=== PATIENT | female | born 1995 | race Asian ===

== ENCOUNTER 2022-09-09 18:51 | Inpatient (IN) ==
[2022-09-09] MEDS ORDERED: OXYTOCIN 30 UNITS/500 ML BAG IV PRN (19:28)
[2022-09-09] MEDS ORDERED: LIDOCAINE 1% LOCAL 20 ML VIAL INFIL PRN (19:28)
[2022-09-09 20:05] LABS: Hematocrit (blood only) 36.8 % (37.0-47.0); Hemoglobin 12.1 g/dl (12.0-16.0); Mean Corpuscular Hgb Conc 32.9 g/dL (32.0-36.0); Mean Corpuscular Volume 70.1 fL (80.0-100.0); Mean Platelet Volume 11.8 fL (9.4-12.4); Platelet Count 186 K/uL (130-400); RDW Standard Deviation 34.8 fL (36.4-46.3); Red Blood Count 5.25 M/uL (4.20-5.40); White Blood Count 11.17 K/ul (4.8-10.8)
--- NOTE | 2022-09-09 21:22 | History & Physical Report ---
Date of Service September 09, 2022 Assessment & Plan (1) Fatty liver in mother during : Plan: Monica is a 27-year-old currently at 39 weeks 3days gestational age presents in early labor. 1. Fetus: Cat 1 2. Labor: Early. 3. GBS negative 4. Vitals wnl. (2) Gestational diabetes: (3) Supervision of normal first : (4) Normal labor: Admission and Anticipated Discharge Date Admission Date: September 09, 2022 History of Present Illness Primary Care Provider: [facility] Monica is a 27-year-old currently at 39 weeks 3days gestational age presents in early labor. denying leakage of fluid or vaginal. good movement. complicating factors: GDM Monthly growth u/s's Elevated Urine total protein -*-u-j-p-k-l-y- -y-c-k-i-t-s- -*-i-o-t-k-l-y- -C-B-C-"-s- -a-n-d- -C-M-P- *Elevated total protein 381.5 on 07/08/22 Dx Fatty Liver *GI consult 10/14/22 *MFM consult (08/08/22) OB Labs: Blood Type O Positive 02/19/22 Antibody Screen NEGATIVE 02/19/22 Hemoglobin 11.9 g/dl (12.0-16.0) L 08/05/22 Hematocrit 37.3 % (37.0-47.0) 08/05/22 Mean Corpuscular Volume 72.0 fL (80.0-100.0) L 08/05/22 Platelet Count 180 K/uL (130-400) 08/05/22 Rubella IgG Antibody Immune (Immune) 02/19/22 Rapid Plasma Reagin Nonreactive (Nonreactive) 02/19/22 Hepatitis B Surface Antigen. NON-REACTIVE (NON-REACTIVE) 02/19/22 Hepatitis C Antibody (EIA) NON-REACTIVE (NON-REACTIVE) 02/19/22 HIV (1&2) Ag and Ab Confirmation NON-REACTIVE (NON-REACTIVE) 02/19/22 Glucose 1 Hour 50 gm Load 143 mg/dl (70-130) H 06/24/22 OB Optional Labs: Chlamydia trachomatis RNA Not Detected (NotDetected) 02/19/22 Neisseria gonorrhoeae RNA Not Detected (NotDetected) 02/19/22 Allergies Allergy/AdvReac Type Severity Reaction Status Date / Time house dust Allergy Unknown Verified 09/09/22 22:49 No Known Drug Allergies Allergy Unknown Verified 09/09/22 13:21 Home Medications Medication Instructions Recorded Confirmed Type vitamin with calcium 1 tab PO DAILY 03/18/22 09/09/22 History no.72-iron 27 mg-folic acid 1 mg tablet ( Vitamins Plus Low Iron) breast pump #1 ea 06/03/22 09/09/22 Rx acetone (urine) test (Ketone Urine #50 ea 07/23/22 09/09/22 Rx Test strips) blood sugar diagnostic (OneTouch #150 ea 07/23/22 09/09/22 Rx Verio test strips) blood-glucose meter (OneTouch #1 ea 07/23/22 09/09/22 Rx Verio Reflect Meter) lancets 33 gauge (OneTouch Delica #150 ea 07/23/22 09/09/22 Rx Lancets) Patient History Medical History Iron deficiency Surgical History No history of previous surgery Family History Father No problems noted. Denies family history of Ovarian cancer Breast cancer Colorectal cancer Social History Smoking Status: Never smoker Hx Alcohol Use: No Hx Substance Use: No Preferred Language: Greenlandic Communication Ability: Effective Manager Technical Services Required: No Beliefs That Will Affect Care: None marital status: marital status details: Len (31) [phone] Current Living Situation: Spouse Current Living Situation Comment: lives with spouse, no pets current occupational status: student current occupation: PhD student [employer] Other Information That Helps Us Care for You: No Feels Safe at Home: Yes Safety Concerns: Feels Safe At This Time Assistive Devices: None Physical Exam Genitourinary: Manual OB Exam: + cervical dilation 4 cm OB Exam Monitor Tracing: + external FHT monitor used, + external uterine monitor used, + category I, + normal FHT variability and + variable decelerations Results & Data Vital Signs (Past 12 Hours) Vital Signs Temp Pulse Resp BP 09/09/22 18:59 36.8 C 90 118/74 09/09/22 19:01 18 Coding Level of Care Code None Diagnoses Fatty liver in mother during O26.619; K76.0 Gestational diabetes O24.419 Supervision of normal first Z34.00 Normal labor O80; Z37.9
[2022-09-09] MEDS: LACTATED RINGER'S 1,000 ML IV PRN ×3 (21:37→23:46)
[2022-09-09] MEDS ORDERED: fentaNYL 2MCG/ML ROPIVACAINE 1.25MG/ML 100 ML BAG EPI ONE (22:33)
[2022-09-09] MEDS ORDERED: BUPIVACAINE 0.25% PF 30 ML VIAL ONE (22:33)
[2022-09-09] MEDS ORDERED: ePHEDrine sulfate 50 MG/ML AMP ONE (22:33)
[2022-09-09] MEDS ORDERED: fentaNYL citrate PF 100 MCG/2 ML VIAL ONE (22:33)
[2022-09-09] MEDS ORDERED: SODIUM CHLORIDE 0.9% PF INJ 10 ML VIAL ONE (22:33)
[2022-09-09] MEDS ORDERED: LIDOCAINE 2%/EPINEPHRINE 1:200,000 20 ML PF ONE (22:33)
[2022-09-09] MEDS ORDERED: NALOXONE HCL 1 MG in SODIUM CHLORIDE 0.9% 1000ML 1,000 ML IV PRN (22:36)
[2022-09-09] MEDS ORDERED: fentaNYL 2MCG/ML ROPIVACAINE 1.25MG/ML 100 ML BAG EPI PRN (22:36)
[2022-09-09] MEDS ORDERED: NALOXONE HCL 0.4 MG/1 ML VIAL/CARP IV PRN (22:36)
[2022-09-09] MEDS ORDERED: ONDANSETRON INJ 2 MG/ML 2 ML VIAL IV PRN (22:36)
[2022-09-09] MEDS ORDERED: ePHEDrine sulfate 50 MG/ML AMP IV PRN (22:36)
[2022-09-09] MEDS ORDERED: NALBUPHINE HCL INJ 10 MG/ML AMP IV PRN (22:36)
[2022-09-09] MEDS ORDERED: diphenhydrAMINE 50 MG/ML VIAL IV PRN (22:36)
[2022-09-09] MEDS ORDERED: PROMETHAZINE HCL 6.25 MG in SODIUM CHLORIDE 0.9% 50 ML IV PRN (22:36)
--- NOTE | 2022-09-09 22:36 | Anesthesiology Consultation ---
Date of Service September 09, 2022 Assessment & Plan Chart Review Chart Review: Patient NOT seen in Pre Admission Testing and Acceptable Risk for Labor Epidural Consults Requested none ASA ASA2 Proposed Anesthesia Anesthesia Type: Labor Epidural Risk / Benefits Reviewed With: PT / POA / Parent / Guardian, Accepts Plan and Informed Consent Obtained History Height/Weight Height: 5 ft 3 in Weight: 69.4 kg Allergies Allergy/AdvReac Type Severity Reaction Status Date / Time No Known Drug Allergies Allergy Unknown Verified 09/09/22 13:21 dust Allergy Unknown Uncoded 09/09/22 13:21 Medications Home Medications Medication Instructions Recorded Confirmed Last Taken vitamin with calcium 1 tab PO DAILY 03/18/22 09/09/22 09/08/22 19:00 no.72-iron 27 mg-folic acid 1 mg tablet ( Vitamins Plus Low Iron) breast pump #1 ea 06/03/22 09/09/22 Unknown acetone (urine) test (Ketone Urine #50 ea 07/23/22 09/09/22 Unknown Test strips) blood sugar diagnostic (OneTouch #150 ea 07/23/22 09/09/22 Unknown Verio test strips) blood-glucose meter (OneTouch #1 ea 07/23/22 09/09/22 Unknown Verio Reflect Meter) lancets 33 gauge (OneTouch Delica #150 ea 07/23/22 09/09/22 Unknown Lancets) Active Medications Generic Name Dose Route Start Last Admin Trade Name Freq PRN Reason Stop Dose Admin Lactated Ringer's 1,000 mls @ 125 mls/hr 09/09/22 19:28 09/09/22 22:25 Lr IV 09/11/22 19:27 125 mls/hr .Q8H PRN Infusion L&D Protocol Protocol Past Medical History Medical History Iron deficiency Exercise / Class Metabolic Activity II 4-5 Yardwork/Stairs/Walk up hill Past Family History Family History Father No problems noted. Denies family history of Ovarian cancer Breast cancer Colorectal cancer Past Surgical History Surgical History No history of previous surgery Past Anesthesia History No Hx of Anesthesia Complications and No Family Hx of Anesthesia Complications History of PONV No Hx of PONV and No Hx of Motion Sickness Social History Smoking Status: Never smoker Hx Alcohol Use: No Hx Substance Use: No Physical Exam Vital Signs Last Vital Signs Temp 36.8 C 09/09/22 21:35 Pulse 103 H 09/09/22 22:34 Resp 18 09/09/22 21:35 BP 96/56 L 09/09/22 22:33 Pulse Ox 98 09/09/22 22:34 ENMT Mouth: no dentition abnormality Thyromental Distance: > or= 3.5 Finger Breadths Mallampati Class: II Neck normal visual inspection Respiratory normal respiratory effort Auscultation: lungs clear to auscultation bilaterally Cardiovascular Rate/Rhythm: regular rate and regular rhythm Psychiatric Orientation: alert Testing Laboratory Results 09/09/22 19:48 09/09/22 20:03 POC Glucose 80
[2022-09-10] MEDS: LACTATED RINGER'S 1,000 ML IV PRN (04:20)
[2022-09-10] MEDS ORDERED: OXYTOCIN 30 UNITS/500 ML BAG IV PRN (06:29)
[2022-09-10] MEDS ORDERED: DIPHTHERIA/TETANUS/PERTUSSIS 0.5mL SYR/VIAL (Age 7+yrs) IM ONE (06:29)
[2022-09-10] MEDS ORDERED: ACETAMINOPHEN 325 MG TAB PO PRN (06:29)
[2022-09-10] MEDS ORDERED: BENZOCAINE 20% AER SPR 82.5 GM CAN EXT PRN (06:29)
[2022-09-10] MEDS ORDERED: bisacodyL 10 MG SUPP PR PRN (06:29)
[2022-09-10] MEDS ORDERED: HYDROCORTISONE ACETATE 25 MG SUPP PR PRN (06:29)
[2022-09-10] MEDS: DOCUSATE SODIUM 100 MG CAP PO SCH ×2 (08:03→21:00)
[2022-09-10] MEDS: PRENATAL VITAMIN 1 TAB PO SCH (08:03)
[2022-09-10] MEDS: FERROUS SULFATE 325 MG TAB PO SCH (08:03)
--- NOTE | 2022-09-10 08:39 | Anesthesia Procedure Note ---
Date of Service September 10, 2022 Anesthesia Post Epidural Note Vital Signs Vital Signs: Temp Pulse Resp BP Pulse Ox 97.9 F 120 H 18 116/71 98 09/10/22 06:30 09/10/22 08:25 09/10/22 07:00 09/10/22 08:25 09/10/22 06:24 Pain Intensity Bilateral Abdomen: Pain Intensity: 8 Notes Mental Status: alert / awake / arousable and participated in evaluation Nausea / Vomiting: adequately controlled Pain: adequately controlled Airway Patency, RR, SpO2: stable & adequate BP & HR: stable & adequate Hydration State: stable & adequate Neuraxial Anesthesia: was administered and sensory block is resolving Anesthetic Complications: no major complications apparent and Pt Satisfied with anesthetic care Epidural: Removed without complications and With tip intact
--- NOTE | 2022-09-10 08:50 | Delivery Summary ---
DATE OF SERVICE: 09/10/2022. PROCEDURE: Normal spontaneous vaginal delivery. SURGEON: Tony Johansen MD. PREOPERATIVE DIAGNOSES: 1. Single intrauterine at 39 weeks 4 days gestational age. 2. Spontaneous labor. 3. Proteinuria in . 4. Diet-controlled gestational diabetes. 5. Fatty liver. POSTOPERATIVE DIAGNOSES: 1. Single intrauterine at 39 weeks 4 days gestational age. 2. Spontaneous labor. 3. Proteinuria in . 4. Diet-controlled gestational diabetes. 5. Fatty liver. 6. Status post procedure. ESTIMATED BLOOD LOSS: 100 mL DRAINS: Straight cath at the completion of the case. URINE OUTPUT: 100 mL per straight cath. COMPLICATIONS: None. FINDINGS: Viable male with weight pending, Apgars of 8 and 9 at one and five minutes respect ively. DESCRIPTION OF PROCEDURE: The patient progressed to 10 cm dilated, 100% effaced, positive 2-3 statio n, pushed over intact perineum with epidural anesthesia, delivered a viable male . Head of th e delivered in J CARLOS position, restituted to left transverse. Body and shoulders quickly follo wed. was delivered to the maternal abdomen and was noted to be vigorous soon after delivery. After 1 minute delayed cord clamping, the cord was double clamped and cut. Cord blood was obtained . Attention was then turned to delivery of placenta, which was delivered intact, 3-vessel cord, gent le cord traction. On inspection of the vagina, perineum and cervix, there were noted to be no lacera tions. Sponge and instrument counts were correct at the completion of the case with mother and neona te stable in the post-delivery period. Job ID: [id number]
--- NOTE | 2022-09-11 06:47 | Obstetrical Progress Note ---
Date of Service September 11, 2022 Assessment & Plan (1) Normal labor: (2) Fatty liver in mother during : (3) Gestational diabetes: (4) Supervision of normal first : Plan Monica is a 27 y/o female who is PPD #1 following delivery at 39w4d. -Meeting all milestones -Vital signs reviewed and WNL, Hemoglobin stable -O+/GBS negative/Rubella immune -Follow up in 6 weeks for appointment -Continue routine care -Monitor temperature, has been afebrile but feels subjectively warm today Admission and Anticipated Discharge Date Admission Date: September 09, 2022 Supervising Physician Co-Signing Physician Notes Resident Physician Supervision Note: I was present with Dr. Mejia during the history and exam. I discussed the case with the resident and agree with the findings and plan as documented in the note. Any exceptions or clarifications are listed here: stable routine care. rhpos/ri/. Documented By: Michelle Kim MD, FACOG Subjective Monica is a 27 y/o female who is PPD #1 following delivery at 39w4d. Her was complicated by GDM (diet controlled) and diagnosis of fatty liver. She reports feeling well overall this morning. Notes abdominal cramping during breast feeding but pain well managed on analgesics. Voiding without issue. Tolerating meals overnight and able to ambulate some. Has some persistent lochia with some improvement this morning. Currently breast feeding. Did note some body aches/feeling warm today. Denies headache Review of Systems Constitutional: no fever, no chills and no sweats Respiratory: no cough, no dyspnea and no wheezing Cardiovascular: no chest pain, no palpitations and no calf pain Genitourinary: no dysuria Neurologic: no headache(s) Physical Exam Constitutional: WD/WN, vitals as above no acute distress Respiratory: no respiratory distress Auscultation: lungs clear to auscultation bilaterally; no rales, no rhonchi and no wheezes Cardiovascular: RRR, no murmur, no edema Extremities: no calf tenderness and no edema Negative Sanjeev's sign bilaterally. Gastrointestinal (Abdomen): Inspection/Auscultation: normal bowel sounds Genitourinary: Uterine fundus firm, palpable below the umbilicus. Results & Data Vital Signs (Past 12 Hours) Vital Signs Temp Pulse Resp BP 09/11/22 04:05 36.6 C 86 20 106/78 09/10/22 23:15 36.6 C 100 H 18 92/56 L 09/10/22 19:55 36.7 C 94 H 20 118/64 Resident Activity Tracking Resident Involvement: Resident Care Provided Care Provided: OB Delivery
[2022-09-11] MEDS: DOCUSATE SODIUM 100 MG CAP PO SCH ×2 (08:11→20:13)
[2022-09-11] MEDS: FERROUS SULFATE 325 MG TAB PO SCH (08:12)
[2022-09-11] MEDS: IBUPROFEN 600 MG TAB PO PRN (08:12)
[2022-09-11] MEDS: PRENATAL VITAMIN 1 TAB PO SCH (08:12)
[2022-09-11] MEDS ORDERED: bisacodyL 5 MG TABEC PO SCH (20:00)
--- NOTE | 2022-09-12 06:08 | Obstetrical Progress Note ---
Date of Service September 12, 2022 Assessment & Plan (1) Normal labor: (2) Fatty liver in mother during : (3) Gestational diabetes: (4) Supervision of normal first : Plan Monica is a 27 y/o female who is PPD #2 following delivery at 39w4d. -Meeting all milestones -Vital signs reviewed and WNL, afebrile since admission -O+/GBS negative/Rubella immune -Follow up in 6 weeks for appointment -Continue routine care -Plan to d/c today Admission and Anticipated Discharge Date Admission Date: September 09, 2022 Supervising Physician Co-Signing Physician Notes Resident Physician Supervision Note: I interviewed and examined the patient. Discussed with Dr. Mejia and agree with findings and plan as documented in the note. Any exceptions or clarifications are listed here: PP2 s/p , doing well. VSS, exam benign and wnl. Stable for d/c home Documented By: Indy Santos MD Subjective Monica is a 27 y/o female who is PPD #2 following delivery at 39w4d. Her was complicated by GDM (diet controlled) and diagnosis of fatty liver. She reports feeling well overall this morning. Notes abdominal cramping during breast feeding but pain well managed on analgesics. Voiding without is chalo. Tolerating meals overnight and able to ambulate some. Has some persistent lochia with some improvement this morning. Currently breast feeding and pumping. Denies any additional body chills overnight, feels better today. Review of Systems Constitutional: no fever, no chills and no sweats Respiratory: no cough, no dyspnea and no wheezing Cardiovascular: no chest pain, no palpitations and no calf pain Genitourinary: no dysuria Neurologic: no headache(s) Physical Exam Constitutional: WD/WN, vitals as above no acute distress Respiratory: no respiratory distress Auscultation: lungs clear to auscultation bilaterally; no rales, no rhonchi and no wheezes Cardiovascular: RRR, no murmur, no edema Extremities: no calf tenderness and no edema Gastrointestinal (Abdomen): Inspection/Auscultation: normal bowel sounds Genitourinary: Uterine fundus firm to palpation below umbilicus Results & Data Vital Signs (Past 12 Hours) Vital Signs Temp Pulse Resp BP 09/11/22 22:45 36.6 C 91 H 18 107/59 L 09/11/22 20:10 36.5 C 93 H 18 109/77 Resident Activity Tracking Resident Involvement: Resident Care Provided Care Provided: OB Delivery
[2022-09-12] MEDS: IBUPROFEN 600 MG TAB PO PRN (07:46)
[2022-09-12] MEDS: DOCUSATE SODIUM 100 MG CAP PO SCH (07:46)
[2022-09-12] MEDS: PRENATAL VITAMIN 1 TAB PO SCH (07:46)
[2022-09-12] MEDS: FERROUS SULFATE 325 MG TAB PO SCH (07:46)
== END 2022-09-12 14:15 | disposition home or self-care (01) | DRG 807 ==
LOC: OPB 18:51 → 4S1 18:52 → 4E2 09-10 09:10